=== PATIENT | female | born 1930 | race Caucasian/White ===

== ENCOUNTER 2016-08-06 13:33 | Inpatient (IN) | payer MEDICARE, BC ==
--- NOTE | ~2016-08-06 | HP ---
History And Physical [facility] [address] [place]. [address] NAME: KAILASH PAREKH : [birth year] STATUS : ADM Jasbir PAT#: [id number] AGE: 85 ADM/REG DATE : 08/06/16 MR#: [id number] REPORT SERV DATE: 08/06/16 DICTATED BY: YAN PUTNAM DATE: 08/06/16 REPORT STATUS : Draft TRANSCRIBED BY: MODL DATE: 08/06/16 DATE OF ADMISSION: 08/06/2016 EXAMINING PHYSICIAN: Yan Putnam M.D. REASON FOR ADMISSION: Hypertensive urgency with hypertensive encephalopathy. HISTORY OF PRESENT ILLNESS: This is an 85-year-old white female, who awakened from sleep this morning with dizziness. Blood pressure taken, blood pressure was found to be 210 systolic at home. Her son is combination operator. She recently had increasing dosage of lisinopril applied to her by Dr. Donte Dewitt. Dr. Bijan Pena, her primary care doctor, referred her to the emergency room because of the symptomatic hypertensive crisis. In the emergency room, she was given IV hydralazine. Her blood pressures came down to 169. The dizziness has fully abated. Review of her creatinine indicate the patient has had a creatinine in January of 2.56, 2.60, and 2.44, now down to 2.10 on the lisinopril. The patient has no complaints. No headache or double vision. No fever, chills, or night sweats. No nausea, vomiting, or diarrhea. She has no stiff neck. She is being admitted to observation for evaluation of hypertension and ability to ambulate again. PAST MEDICAL HISTORY: She was in the hospital with pneumonia back in January 2016. She has recovered from that after going to [facility]. She does have pulmonary fibrosis, is followed by Dr. Bob Chun. She has nocturnal oxygen desaturation, however, she wears her oxygen all the time at home. She is 99% on 2 L/minute by nasal cannula now and on room air 95% at rest. She does have a history of atrial fibrillation, followed by Dr. Jose Maria Arteaga. She has chronic kidney disease stage 4, history of depression, skin cancers, urinary tract infections, glaucoma, history of polio with mild left leg weakness that improved over the last several years. She had back surgery twice, appendectomy, multiple skin cancers removed. No allergies to medicines are noted. SOCIAL HISTORY: She quit smoking in 1994. No alcohol abuse. She became a in 2013 but only lived alone for one winter in [place], [place] before her son moved her down here. Her son was a professor of business administration at [employer] for 37 years, now is retired taking care of her realtime captioner. She lives with her only son. FAMILY HISTORY: She had a brother with diabetes. Her mother had thyroid disease. There is a strong family history of strokes. History And Physical [address] [address] NAME: KAILASH PAREKH : [birth year] STATUS : ADM Jasbir PAT#: [id number] AGE: 85 ADM/REG DATE : 08/06/16 MR#: [id number] REPORT SERV DATE: 08/06/16 DICTATED BY: YAN PUTNAM DATE: 08/06/16 REPORT STATUS : Draft TRANSCRIBED BY: EVA DATE: 08/06/16 HOME MEDICATIONS: Include Eliquis 2.5 p.o. b.i.d., vitamin D2 one daily, ferrous sulfate 325 p.o. daily, labetalol 200 mg p.o. b.i.d., lisinopril 20 mg p.o. daily, loratadine 10 mg p.o. daily, probiotic one a day, Pataday solution 0.2% daily to both eyes, sertraline 100 mg p.o. daily, simethicone 80 mg twice a day, timolol maleate 0.5% one drop daily, torsemide 10 mg p.o. b.i.d., and Nasacort nasal spray daily. ALLERGIES: NONE KNOWN. REVIEW OF SYSTEMS: She denies any nausea, vomiting, or diarrhea. No melena, hematemesis, hemoptysis, hematuria, fever, chills, night sweats, unilateral weakness, fits, seizures, or convulsions. The remainder of the review of systems is negative. PHYSICAL EXAMINATION: VITAL SIGNS: Blood pressure 169/75, heart rate 73, respiratory rate 16, afebrile. HEENT: EOMI. Sclerae clear. Conjunctivae pink. NECK: No bruit without any JVD. CHEST: Sounds clear anterior and laterally. HEART: Regular S1, S2 without murmur, gallop, or click. BREASTS: Grossly without mass. ABDOMEN: Soft and nontender. Bowel sounds positive. EXTREMITIES: Have no edema. Distal pulses are palpable in dorsalis pedis and posterior tibial. NEUROLOGIC: She withdraws to plantar stimulation. Wire Turning Machine Operator is equal and symmetric bilaterally. Coordination intact. She has no tremor. She is symmetric and equal neurologically bilaterally. SKIN: Without rash, ecchymosis, or bruising. LYMPHATICS: There is no adenopathy palpable. DATA: CT scan of the brain showed deep white matter disease with old atrophy but no acute bleed is noted. There is evidence of retained secretions in left maxillary sinus, partially desiccated. Her creatinine is 2.10 with a BUN of 41, sodium 143, potassium 3.6, chloride 105, and CO2 of 25. Glucose is 102 with estimated GFR of 21 mL a minute. Troponin 0.07. Hemoglobin 11.6, hematocrit 35, white count 7.3, platelets are 322,000, and INR is 1.3. EKG is reviewed and shows sinus rhythm, with a long first-degree AV block, with ID of 0.296, left axis deviation and anterior scar, slow R-wave progression. ASSESSMENT: 1. Hypertensive encephalopathy. 2. Hypertensive crisis, resolved. 3. Chronic kidney disease stage 4. 4. Pulmonary fibrosis. 5. Hypertension. 6. History of postural hypotension, off diuretics now, mostly low dose of torsemide. History And Physical [address] [address] NAME: KAILASH PAREKH : [birth year] STATUS : ADM Jasbir PAT#: [id number] AGE: 85 ADM/REG DATE : 08/06/16 MR#: [id number] REPORT SERV DATE: 08/06/16 DICTATED BY: YAN PUTNAM DATE: 08/06/16 REPORT STATUS : Draft TRANSCRIBED BY: EVA DATE: 08/06/16 Still, I will hold this and check her blood pressure supine and standing. We will see how she does back with a walker. If she is steady on her feet, she could go home in as little as 8 hours. I would like to keep her overnight to be able to assess stability and blood pressure control. We will change her to hydralazine 25 q.i.d. and stop the lisinopril for now, have Dr. Dewitt see her and confirm this as this is his desire to change the medication in this fashion. We will repeat the BMP in the morning. DB/MODL Yan Putnam M.D. / [id number] CC: Delphine Ruffin M.D. John McCarley, M.D.
--- NOTE | ~2016-08-06 | PREOPHP ---
PreOp History and Physical [facility] [address] [place]. [address] NAME: KAILASH PAREKH : [birth year] STATUS : ADM Jasbir PAT#: [id number] AGE: 85 ADM/REG DATE : 08/06/16 MR#: [id number] REPORT SERV DATE: 08/06/16 DICTATED BY: BURAK RUANO DATE: 08/06/16 REPORT STATUS : Draft TRANSCRIBED BY: EVA DATE: 08/06/16 TIME: 8 p.m. REASON FOR ADMISSION CONSULTATION: Uncontrolled hypertension. ASSESSMENT: Uncontrolled hypertension. An 85-year-old female with underlying isolated systolic hypertension, presenting with symptomatic dizziness and hypertensive crisis, systolic blood pressure running in the 200s and symptomatic. She has recently failed a course of attempted increasing dose of lisinopril and now presents for further evaluation. I suspect she has gotten isolated systolic hypertension with underlying atherosclerosis, underlying pulmonary fibrosis. There is an abnormal cyst on the left kidney considering although she does not meet the criteria for secondary hypertension in the form of pheochromocytoma. She did have proteinuria with a negative immunoelectrophoresis done last year. PLAN: Therefore, 1. Continue her labetalol. 2. Continue her diuretic at the current dose. 3. I have added a dilator, we would try BiDil initially and see if she can tolerate this twice a day. We need to gradually reduce her blood pressure, cannot over correct too rapidly due to high risk of stroke. In addition, if the BiDil is not effective and she is symptomatic from headaches related to it, I would consider Procardia XL 30 mg twice a day as an alternative. I do not think an alpha anuel is indicated at this time, and in addition, we will obtain a CT scan of the abdomen and pelvis without contrast to rule out plus also evaluate an area noted on ultrasound on the left kidney that may suggest that abnormal area. In addition, I would like to measure orthostatics. Consideration for stopping her diuretic may be looked at, particularly as she has no edema in spite of a pulmonary fibrosis. HISTORY OF PRESENT ILLNESS: History is obtained from the patient and her son. She is a very pleasant 85-year-old female, who was last here in January of last year when she was at that time appeared to be in cor pulmonale, volume overloaded and required a significant amount of diuresis. Unfortunately, after that she became orthostatic and required adjustment of her diuretics. She was also diagnosed with pulmonary fibrosis at that time CKD with nephrosclerosis, and at baseline, creatinine is noted to be 2.1 today and has been running from 1.75 in November 2015 to 2.6 in January 2016 and now 2.10. She came in because of dizziness and some nausea and blurring of vision. This started today. Her blood pressure was difficult to control, systolic in the 200s, but no focal weakness, chest pain, or shortness of breath described. She denies the use of anti-inflammatories. No history of increasing lower limb edema. She is very compliant with her salt intake and denies any palpitations, headaches, or flushing episodes and does not meet the criteria although tried for pheochromocytoma. PAST MEDICAL HISTORY: Significant for, PreOp History and Physical [address] [address] NAME: KAILASH PAREKH : [birth year] STATUS : ADM Jasbir PAT#: [id number] AGE: 85 ADM/REG DATE : 08/06/16 MR#: [id number] REPORT SERV DATE: 08/06/16 DICTATED BY: BURAK RUANO DATE: 08/06/16 REPORT STATUS : Draft TRANSCRIBED BY: EVA DATE: 08/06/16 1. Idiopathic pulmonary fibrosis, for which she is on oxygen, but not on treatment. 2. Hypertension, systolic, poorly controlled. 3. Chronic kidney disease. 4. Atherosclerotic cardiovascular disease with atrial fibrillation. 5. Major depression and anemia as well. SOCIAL HISTORY: She quit smoking back in 1986. No alcohol or medication or street drug usage. FAMILY HISTORY: Negative for chronic disease or end-stage renal failure. She does not know the cause of demise of her parents at this time. She herself is 85 years old. HOME MEDICATIONS: Include apixaban, cholecalciferol, ferrous sulfate, labetalol, lisinopril, loratadine, Zoloft, simethicone, timolol, torsemide, and Nasacort. REVIEW OF SYSTEMS: As per the HPI. PHYSICAL EXAMINATION: GENERAL: She is a very pleasant 85-year-old. VITAL SIGNS: Her blood pressure are currently running 190s/97, heart rates is in the 80s. She is afebrile. HEENT: Pupils are reacting to light. She is not pale or jaundiced. Oral mucosa moist. No pharyngitis. NECK: Supple. No thyromegaly and no carotid bruits heard. No masses palpable. Air entry is equal bilaterally. CHEST: Clear to auscultation. She is on oxygen by nasal cannula 2 L. Coats beat is not displaced. S1-S2. No rub. ABDOMEN: Mild distention. No hepatosplenomegaly. No tenderness, guarding, or rebound. Bowel sounds normal. She has no peripheral edema. No rash reported and the muscle bulk and tone are appropriate for age. EXTREMITIES: Dorsalis pedis and posterior tibials are palpable. NEUROLOGIC: She is awake, alert, and oriented to time, place, and person. Coats not depressed. Cranial nerves are intact. No acute arthritic findings noted. LAB WORK: Sodium 143, potassium 3.6, chloride 105, BUN 41, creatinine 2.1, calcium 9.1, magnesium 2.2, phosphorus 2.7, albumin is 2.6. Hemoglobin is 11.6, hematocrit 35.0, white count 7.3, platelet count 332,000. CT scan done this admission shows atrophy and old deep white matter changes, evidence for retained secretion into the left maxillary sinus, but otherwise no major findings. MG/EVA Burak PreOp History and Physical [address] [address] NAME: KAILASH PAREKH : [birth year] STATUS : ADM Jasbir PAT#: [id number] AGE: 85 ADM/REG DATE : 08/06/16 MR#: [id number] REPORT SERV DATE: 08/06/16 DICTATED BY: BURAK RUANO DATE: 08/06/16 REPORT STATUS : Draft TRANSCRIBED BY: EVA DATE: 08/06/16 Delphine Ruano / [id number] CC: Delphine Ruffin M.D.
--- NOTE | ~2016-08-06 | DS ---
Discharge Summary [facility] [address] [place]. [address] NAME: KAILASH PAREKH : [birth year] STATUS : ADM IN [facility]#: [id number] AGE: 85 ADM/REG DATE : 08/07/16 MR#: [id number] REPORT SERV DATE: 08/09/16 DICTATED BY: CELSO CUMMINGS DATE: 08/09/16 REPORT STATUS : Draft TRANSCRIBED BY: MODL DATE: 08/09/16 ADMISSION DATE: 08/06/2016 DISCHARGE DATE: 08/09/2016 DISCHARGE DIAGNOSES: 1. Benign positional vertigo. 2. Hypertensive urgency. 3. Atrial fibrillation. 4. Pulmonary fibrosis. 5. Glaucoma. 6. Chronic kidney disease stage [address] Dewitt. CONSULTANTS DURING THIS HOSPITALIZATION: Greg Tierney M.D., of Nephrology. INVASIVE PROCEDURES DONE DURING THIS HOSPITALIZATION: None. BRIEF HISTORY OF PRESENT ILLNESS: The patient is an 85-year-old, white female, who was triaged in the emergency room on 08/06/2016 at 1205 hours with complaints of hypertension, nausea, and dizziness. So she was admitted. For detailed history and physical exam, please see note dictated by Dr. Pritesh Scott on 08/06/2016. HOSPITAL COURSE: After being admitted to the hospital, this patient was seen by Nephrology. Her blood pressure had been well managed. Nephrology placed her on full dose of BiDil. Her blood pressure came down to the 120s. With that, she had significant dizziness. So we adjusted her BiDil dose to half a tablet twice daily and reduced her labetalol to half a tablet twice daily as well thinking that this may be causing orthostatic hypotension and this truly was correct. Her orthostasis has resolved. However, she has had significant benign positional vertigo and this may be the reason for the recent elevation in the blood pressure. We have given her Antivert and tested it out in the hospital setting where her vertigo has resolved. Now, she is ambulatory, using a walker. Her current kidney function has remained stable during this hospitalization at about 2.6 was the creatinine on the day of discharge. All other parameters have remained stable. She continues to be on oxygen for her pulmonary fibrosis and continues to be on her eyedrops for her glaucoma. She remained stable otherwise and is being discharged in stable condition. A CT scan of the abdomen and pelvis was done because there was a nodule in this left kidney. However, on the CT scan that did not show as a mass. She had some benign cyst. She did have evidence of bilateral renal artery stenosis but since her creatinine has remained stable, Dr. Tierney, did not think that this was physiologic and just needed outpatient continued followup with Dr. Dewitt. DISPOSITION: Home. DISCHARGE ACTIVITY: As tolerated. DISCHARGE DIET: Low-sodium diet. Discharge Summary [address] [address] NAME: KAILASH PAREKH : [birth year] STATUS : ADM IN [facility]#: [id number] AGE: 85 ADM/REG DATE : 08/07/16 MR#: [id number] REPORT SERV DATE: 08/09/16 DICTATED BY: CELSO CUMMINGS DATE: 08/09/16 REPORT STATUS : Draft TRANSCRIBED BY: EVA DATE: 08/09/16 DISCHARGE MEDICATIONS: BiDil 20/37.5 mg half a tablet twice daily, Antivert 12.5 mg p.o. three times daily p.r.n. for dizziness, Eliquis 2.5 mg twice daily, vitamin D 2000 units once daily, iron 325 mg once daily, Pataday eyedrops as directed, labetalol 100 mg twice daily, Zoloft 100 mg once daily, torsemide 20 mg twice daily, simethicone as needed, loratadine 10 mg once daily, Probiotics, timolol 1 drop daily in both eyes, Nasacort AQ 1 spray each nostril once daily. DISCHARGE FOLLOWUP: With Dr. Bijan Pena in one week, with Dr. Dewitt as scheduled previously. More than 30 minutes spent planning this patient's discharge, reconciling medications, writing prescriptions, discussing hospital care, and followup with the patient and the son at the bedside and documenting this discharge. DENISE/EVA Celso Cummings M.D. / [id number] CC: Delphine Ruffin M.D. Donte Dewitt M.D.
[2016-08-06 13:04] LABS: BASOPHILS 0.7 %; BASOPHILS ABSOLUTE 0.05 10/3/uL (0.0-0.16); EOSINOPHILS 3.3 %; EOSINOPHILS ABSOLUTE 0.24 10/3/uL (0.0-0.53); ER CBC TAT 0 Hrs 05 Mins; HEMOGLOBIN 11.6 g/dL (12.0-16.0); IMMATURE GRANULOCYTES 0.1 %; IMMATURE GRANULOCYTES ABSOLUTE 0.01 10/3/uL (0.0-0.11); LYMPHOCYTES 18.2 %; LYMPHOCYTES ABSOLUTE 1.33 10/3/uL (0.67-4.30); MANUAL DIFF NO %; MEAN CORPUS HGB CONC 33.1 g/dL (32.0-36.0); MEAN CORPUSCULAR HEMOGLOB 31.1 pg (26.0-34.0); MEAN CORPUSCULAR VOLUME 93.8 fL (80-100); MEAN PLATELET VOLUME 9.9 fL (9.2-13.0); MONOCYTES 6.8 %; NEUTROPHILS 70.9 %; NEUTROPHILS ABSOLUTE 5.19 10/3/uL (2.02-8.40); PLATELET COUNT 332 10/3/uL (150-400); RBC DISTRIBUTION WIDTH 14.9 % (12.0-16.0); RED CELL COUNT 3.73 10/6/uL (4.0-5.6); WHITE BLOOD CELLS 7.3 10/3/uL (4.5-10.5)
[2016-08-06 13:11] LABS: INTERNATIONAL NORMAL RATI 1.3 UNITS (-); PARTIAL THROMBO TIME 36.1 SEC (22.5-37.2); PROTIME (NOT ORD) 15.6 SEC (12.0-14.5)
[2016-08-06 13:20] LABS: BUN (BLOOD UREA NITROGEN) 41 MG/DL (6-23); CALCIUM, SERUM 9.1 MG/DL (8.5-10.4); CHEST PAIN PROFILE TAT 0 Hrs 21 Mins; CHLORIDE, SERUM 105 MMOL/L (96-112); CO2 (CARBON DIOXIDE) 25 MMOL/L (24-34); GFR AFRICAN AMERICAN 24 ML/MIN (>=60); GFR NON AFRICAN AMERICAN 21 ML/MIN (>=60); GLUCOSE, SERUM 102 MG/DL (60-99); POTASSIUM, SERUM 3.6 MMOL/L (3.5-5.3); SODIUM, SERUM 143 MMOL/L (135-148); TROPONIN I 0.07 NG/ML (<0.05)
[~2016-08-06 13:33] MED LIST: ACET500CAP PO; APRES25 PO; CLARIT10 PO; DEMADEX5 MG PO; ELIQUIS 2.5 MG2.5 MG PO; NASACORTAQ NAS; NORV5 PO; PATANOL OPH; SIMETHICONE 180 MG PO; TIMOLOL GEL0.5 % OPH; TRAN200 PO; VITAMIN D31000 UNIT PO; ZOL100 PO
[2016-08-06] MEDS ORDERED: TIMOLOL MAL0.5 % OPH ×2 (15:29→15:40)
[2016-08-06] MEDS ORDERED: DEMA10T PO (15:29)
[2016-08-06] MEDS ORDERED: ELIQUIS 2.5 MG2.5 MG PO (15:30)
[2016-08-06] MEDS ORDERED: ZOL100 PO (15:30)
[2016-08-06] MEDS ORDERED: TRAN200 PO (15:31)
[2016-08-06] MEDS ORDERED: VITAMIN D2000 UNIT PO (15:31)
[2016-08-06] MEDS ORDERED: CLARIT10 PO (15:34)
[2016-08-06] MEDS ORDERED: MYLICON 80 MG T80 MG PO (15:34)
[2016-08-06] MEDS ORDERED: FERROUS SULF325 M1 PO (15:35)
[2016-08-06] MEDS ORDERED: PROBIOTIC (15:35)
[2016-08-06] MEDS ORDERED: PATADAY (15:39)
[2016-08-06] MEDS ORDERED: PRIN20 PO (15:40)
[2016-08-06] MEDS ORDERED: NASACORTAQ NAS (15:51)
[2016-08-07 04:59] LABS: BASOPHILS 0.7 %; BASOPHILS ABSOLUTE 0.06 10/3/uL (0.0-0.16); EOSINOPHILS 4.8 %; HEMOGLOBIN 9.8 g/dL (12.0-16.0); IMMATURE GRANULOCYTES 0.2 %; IMMATURE GRANULOCYTES ABSOLUTE 0.02 10/3/uL (0.0-0.11); LYMPHOCYTES 21.2 %; LYMPHOCYTES ABSOLUTE 1.75 10/3/uL (0.67-4.30); MEAN CORPUS HGB CONC 33.8 g/dL (32.0-36.0); MEAN CORPUSCULAR HEMOGLOB 31.3 pg (26.0-34.0); MEAN CORPUSCULAR VOLUME 92.7 fL (80-100); MEAN PLATELET VOLUME 9.8 fL (9.2-13.0); MONOCYTES 11.2 %; MONOCYTES ABSOLUTE 0.93 10/3/uL (0.21-1.20); NEUTROPHILS 61.9 %; NEUTROPHILS ABSOLUTE 5.11 10/3/uL (2.02-8.40); PLATELET COUNT 318 10/3/uL (150-400); RBC DISTRIBUTION WIDTH 15.2 % (12.0-16.0); RED CELL COUNT 3.13 10/6/uL (4.0-5.6); WHITE BLOOD CELLS 8.3 10/3/uL (4.5-10.5)
[2016-08-07 05:01] LABS: MANUAL DIFF NO %
[2016-08-07 05:16] LABS: ALBUMIN 2.7 G/DL (3.5-5.0); CALCIUM, SERUM 8.9 MG/DL (8.5-10.4); CHLORIDE, SERUM 104 MMOL/L (96-112); CO2 (CARBON DIOXIDE) 24 MMOL/L (24-34); CREATININE 2.17 MG/DL (0.55-1.02); GFR AFRICAN AMERICAN 23 ML/MIN (>=60); GFR NON AFRICAN AMERICAN 20 ML/MIN (>=60); GLUCOSE, SERUM 101 MG/DL (60-99); POTASSIUM, SERUM 3.1 MMOL/L (3.5-5.3); SODIUM, SERUM 138 MMOL/L (135-148)
[2016-08-07 05:27] LABS: BUN (BLOOD UREA NITROGEN) 45 MG/DL (6-23); PHOSPHORUS, SERUM 3.7 MG/DL (2.5-4.5)
[2016-08-08 06:46] LABS: ALBUMIN 2.8 G/DL (3.5-5.0); BUN (BLOOD UREA NITROGEN) 52 MG/DL (6-23); CALCIUM, SERUM 8.6 MG/DL (8.5-10.4); CHLORIDE, SERUM 107 MMOL/L (96-112); CO2 (CARBON DIOXIDE) 23 MMOL/L (24-34); CREATININE 2.52 MG/DL (0.55-1.02); GFR AFRICAN AMERICAN 19 ML/MIN (>=60); GFR NON AFRICAN AMERICAN 17 ML/MIN (>=60); GLUCOSE, SERUM 100 MG/DL (60-99); PHOSPHORUS, SERUM 4.4 MG/DL (2.5-4.5); SODIUM, SERUM 141 MMOL/L (135-148)
[2016-08-09 05:58] LABS: ALBUMIN 2.8 G/DL (3.5-5.0); CALCIUM, SERUM 8.5 MG/DL (8.5-10.4); CHLORIDE, SERUM 104 MMOL/L (96-112); CO2 (CARBON DIOXIDE) 24 MMOL/L (24-34); CREATININE 2.56 MG/DL (0.55-1.02); GFR AFRICAN AMERICAN 19 ML/MIN (>=60); GFR NON AFRICAN AMERICAN 16 ML/MIN (>=60); GLUCOSE, SERUM 95 MG/DL (60-99); PHOSPHORUS, SERUM 5.2 MG/DL (2.5-4.5); SODIUM, SERUM 141 MMOL/L (135-148)
[2016-08-09 06:00] LABS: BUN (BLOOD UREA NITROGEN) 64 MG/DL (6-23)
[2016-08-09] MEDS ORDERED: BIDIL20/37 PO (10:47)
[2016-08-09] MEDS ORDERED: MCZ125 PO (10:49)
== END 2016-08-09 13:53 | disposition home or self-care (01) | DRG 305 ==
LOC: ER 13:33 → 6NO 15:45
PROVIDERS: Emergency Medicine; Internal Medicine
DX: I16.0 Hypertensive urgency (principal); I67.4 Hypertensive encephalopathy; N18.4 Chronic kidney disease, stage 4 (severe); J84.112 Idiopathic pulmonary fibrosis; I48.91 Unspecified atrial fibrillation; I70.1 Atherosclerosis of renal artery; I95.1 Orthostatic hypotension; H81.10 Benign paroxysmal vertigo, unspecified ear; H40.9 Unspecified glaucoma; M81.0 Age-related osteoporosis without current pathological fracture; I12.9 Hypertensive chronic kidney disease with stage 1 through stage 4 chronic kidney disease, or unspecified chronic kidney disease; Z87.891 Personal history of nicotine dependence; Z87.01 Personal history of pneumonia (recurrent); F32.9 Major depressive disorder, single episode, unspecified
CPT/HCPCS: 70450; 74176; 76775; 80048; 80069; 83735; 84484; 85025; 85610; 85730; 93005; 93880; 96374; 99285; A9270-GY; J0360